=== PATIENT | female | born 1960 ===

== ENCOUNTER 2019-10-14 08:15 | Inpatient (IN) | payer OTHER ==
[~2019-10-14] VITALS: Ht 154.9 cm; Wt 81.6 kg
[2019-10-14] MEDS ORDERED: COZAAR50 MG PO (09:36)
== END 2019-10-24 15:01 | disposition home or self-care (01) | DRG 743 ==
LOC: O/R 10-21 07:00 → OB/GYN 10-21 08:38
PROVIDERS: ADMIT Obstetrics & Gynecology; ATTEND Obstetrics & Gynecology
PROC: 0UB20ZZ Excision of Bilateral Ovaries, Open Approach (ICD-10-PCS; 2019-10-21)
PROC: 0UB70ZZ Excision of Bilateral Fallopian Tubes, Open Approach (ICD-10-PCS; 2019-10-21)
PROC: 0UT90ZZ Resection of Uterus, Open Approach (ICD-10-PCS; principal; 2019-10-21 07:00)
DX: D25.1 Intramural leiomyoma of uterus (principal); D25.2 Subserosal leiomyoma of uterus; E66.9 Obesity, unspecified; E78.5 Hyperlipidemia, unspecified; I10 Essential (primary) hypertension